=== PATIENT | female | born 1960 | race American Indian/Alaskan Native ===

== ENCOUNTER 2016-04-15 06:30 | Day surgery (SDC) | payer BC ==
[2016-04-15] MEDS ORDERED: NACL 0.9% 500 ML 500 ML ONE (06:45)
[2016-04-15] MEDS ORDERED: NACL 0.9% 500 ML 500 ML IV SCH (07:00)
[2016-04-15 07:12] LABS: Basophils % (Auto) 0.1 % (0.0-1.8); Hematocrit 36.9 % (30.3-42.9); Hemoglobin 11.6 gm/dl (10.1-14.3); Mean Corpuscular HGB Conc 31 % (30-34); Mean Corpuscular Volume 83 fl (79-97); Platelet Count 262 K/mm3 (140-440); Red Blood Count 4.48 M/mm3 (3.65-5.03); Red Cell Distribution Width 15.3 % (13.2-15.2); White Blood Count 13.8 K/mm3 (4.5-11.0)
[2016-04-15 07:14] LABS: Mean Corpuscular Hemoglobin 26 pg (28-32)
--- NOTE | 2016-04-15 07:19 | Anesthesia Consultation ---
Anesthesia Consult and Med Hx - Airway Anesthetic Teeth Evaluation: Good, Dentures (upper) ROM Head & Neck: Adequate Mental/Hyoid Distance: Adequate Mallampati Class: Class II - Pulmonary Exam CTA: Yes - Cardiac Exam Cardiac Exam: RRR - Pre-Operative Health Status ASA Pre-Surgery Classification: ASA2, ASA3 Proposed Anesthetic Plan: Epidural (hx PONV), Spinal - Cardiovascular System Hx Hypertension: Yes - Endocrine Hx Non-Insulin Dependent Diabetes: Yes - Other Systems Hx Obesity: Yes
--- NOTE | 2016-04-15 07:20 | Anesthesia Day of Surgery ---
Anesthesia Day of Surgery - Day of Surgery Patient Examined: Yes Patient H&P Reviewed: Yes Patient is NPO: Yes
[2016-04-15 07:21] LABS: Anion Gap 19 mmol/L; Blood Urea Nitrogen 16 mg/dL (7-17); Calcium 9.4 mg/dL (8.4-10.2); Carbon Dioxide 26 mmol/L (22-30); Chloride 98.8 mmol/L (98-107); Glucose 217 mg/dL (65-100); INR 1.06 (0.87-1.13); Potassium 4.1 mmol/L (3.6-5.0); Sodium 140 mmol/L (137-145)
[2016-04-15] MEDS ORDERED: ZOFRAN IV PRN (07:22)
[2016-04-15] MEDS ORDERED: LACTATED RINGERS 1,000 ML IV SCH (07:26)
[2016-04-15] MEDS: VERSED ONE ×2 (08:33→08:40)
[2016-04-15] MEDS: SUBLIMAZE ONE ×2 (08:33→08:40)
[2016-04-15] MEDS: XYLOCAINE 2% INFILTRATI ONE ×2 (08:34→08:40)
[2016-04-15] MEDS: CALAN ONE ×2 (08:34→08:40)
[2016-04-15] MEDS: HEPARIN 10,000 UNITS/10 ML ONE ×2 (08:35→08:40)
[2016-04-15] MEDS: NITROGLYCERIN SYRINGE 3 ML ONE ×2 (08:36→08:40)
[2016-04-15] MEDS: HEPARIN/NS 5000 UNIT/500ML(CATH LAB) 1,000 ML IR ONE ×2 (08:36→08:40)
--- NOTE | 2016-04-15 09:58 | Cardiac Catherization Report ---
PERIPHERAL ANGIOGRAM REFERRING PHYSICIAN: Ernie Ibarra M.D. INDICATION FOR PROCEDURE: The patient is a very pleasant 55-year-old -[place] female with history of coronary disease and significant bilateral lower extremity peripheral vascular disease and claudication, referred for peripheral angiography. Risks, benefits, and potential alternatives explained at length prior to obtaining informed consent. She is also allergic to SHELLFISH and she was appropriately premedicated. PROCEDURE IN DETAIL: The patient was brought to blood and plasma laboratory assistant in a postabsorptive state. Her left radial artery was prepped and draped in sterile fashion. A 2 mL of 2% lidocaine used to anesthetize the wrist. A standard 5 Nicaraguan hydrophilic sheath used to cannulate the left radial artery via modified Seldinger technique. All exchanges were performed to exchange a J-tip wire. A pigtail catheter was placed into the proximal abdominal aorta. DSA abdominal aortogram is performed. Next, a catheter was moved into the distal abdominal aorta and bilateral runoff. Computer sequencing is performed all the way to the feet. Next, the patient was found to have a right iliac artery occlusion. Third-order angiography was performed. A long 5-Nicaraguan MP catheter placed into the proximal right external iliac artery and a cineangiography is performed in ARMENDARIZ and AMERICAN projections. Catheter removed from the body over a wire, sheath is removed. Manual pressure used to achieve hemostasis. DATA: Aortic pressure is 150/70. The patient remained in normal sinus rhythm throughout the procedure. ANATOMY: The abdominal aorta has mild diffuse atheroma, but no evidence of aneurysm or occlusion. Renal arteries appear to be patent bilaterally. Proximal bilateral common iliac arteries are patent. The right external iliac artery is occluded and reconstitutes at the level of the common femoral artery. The left external iliac artery is patent. The left common femoral artery is patent. The left SFA with moderate diffuse disease, 60-70% throughout. There is good 3-vessel runoff in the left foot. The right external iliac artery is occluded, reconstitution at the right common femoral artery. The right SFA with moderate diffuse disease, maximal narrowing of approximately 50-60%. Popliteal artery is normal. Good 3-vessel infrapopliteal runoff to the foot is identified. CONCLUSIONS: 1. Mild to moderate diffuse aortic atheroma. 2. 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 3. Bilateral moderate diffuse SFA disease. 4. Excellent 3-vessel infrapopliteal runoff bilaterally. We will stage her for right external iliac angioplasty. Results of procedure explained at length to the patient. All questions were addressed. No complications were noted. JOB# [id number] MARIANELA/ANDREA
--- NOTE | 2016-04-15 11:55 | Short Stay Summary ---
Short Stay Documentation Date of service: 04/15/16 - History H&P: obtained from office - Allergies and Medications Current Medications: Allergies codeine Allergy (Verified 04/15/16 06:53) Hives shellfish derived Allergy (Verified 04/15/16 06:53) Hives Home Medications Medication Instructions Recorded Confirmed Last Taken Type Amlodipine Besylate [Amlodipine 5 mg PO QHS 04/15/16 04/15/16 04/14/16 History Besylate] Aspirin [Adult Low Dose Aspirin EC] 81 mg PO DAILY 04/15/16 04/15/16 04/15/16 05 :00 History Cilostazol [Pletal] 50 mg PO BID 04/15/16 04/15/16 04/13/16 History Clopidogrel Bisulfate [Clopidogrel] 76 mg PO DAILY 04/15/16 04/15/16 04/14/16 History Diphenhydramine HCl [Benadryl 25 mg PO Q12H 04/15/16 04/15/16 04/15/16 05:00 History Allergy TAB] Hydrochlorothiazide 12.5 mg PO DAILY 04/15/16 04/15/16 04/15/16 05:00 History [Hydrochlorothiazide] Levothyroxine [Synthroid] 75 mcg PO QAM 04/15/16 04/15/16 04/15/16 05:00 History Losartan [Cozaar] 50 mg PO QHS 04/15/16 04/15/16 04/14/16 History Metformin HCl [Metformin HCl] 500 mg PO DAILY 04/15/16 04/15/16 04/14/16 History Metoprolol [Lopressor TAB] 50 mg PO DAILY 04/15/16 04/15/16 04/14/16 History Nitroglycerin [Nitrostat] 0.4 mg SL Q5M PRN 04/15/16 04/15/16 04/14/16 History Ranitidine HCl [Zantac 150 MG TAB] 150 mg PO Q12H 04/15/16 04/15/16 04/15/16 History Simvastatin [Zocor TAB] 40 mg PO DAILY 04/15/16 04/15/16 04/14/16 History predniSONE [Deltasone] 50 mg PO Q12H 04/15/16 04/15/16 04/15/16 05:00 History traMADol [Ultram 50 MG tab] 50 mg PO Q6HR PRN #60 tablet 04/15/16 Unknown Rx Active Medications Sodium Chloride (Nacl 0.9% 500 Ml) 500 mls @ 50 mls/hr IV DIRECT GIANNI Stop: 04/15/16 16:59 Last Admin: 04/15/16 07:20 Dose: 50 mls/hr Lactated Ringer's (Lactated Ringers) 1,000 mls @ 100 mls/hr IV DIRECT GIANNI Stop: 04/16/16 23:59 Short Stay Discharge Plan Additional Instructions: Follow up with [facility] as scheduled. Follow up with: MARISSA PARKER MD [Staff Physician] - 7 Days EVAN DERAS DO [Primary Care Provider] - 7 Days Forms: CardCat PCI D/C Instructions Prescriptions: traMADol [Ultram 50 MG tab] 50 mg PO Q6HR PRN #60 tablet PRN Reason: Pain
[2016-04-15 12:24] VITALS: BP 145/41
== END 2016-04-15 12:50 | disposition home or self-care (01) ==
LOC: OPU 06:30
PROVIDERS: ATTEND Internal Medicine
DX: I70.213 Atherosclerosis of native arteries of extremities with intermittent claudication, bilateral legs (principal); I70.0 Atherosclerosis of aorta; I70.92 Chronic total occlusion of artery of the extremities; I25.10 Atherosclerotic heart disease of native coronary artery without angina pectoris; E78.5 Hyperlipidemia, unspecified; E11.9 Type 2 diabetes mellitus without complications; E03.9 Hypothyroidism, unspecified; I10 Essential (primary) hypertension; E66.9 Obesity, unspecified; Z68.37 Body mass index [BMI] 37.0-37.9, adult; Z95.5 Presence of coronary angioplasty implant and graft; Z90.710 Acquired absence of both cervix and uterus; Z87.891 Personal history of nicotine dependence; Z83.3 Family history of diabetes mellitus; Z82.49 Family history of ischemic heart disease and other diseases of the circulatory system; Z80.0 Family history of malignant neoplasm of digestive organs
CPT/HCPCS: 36246; 36415; 75625; 75716; 80048; 82962; 85025; 85610; 85730; C1894; J1644; J2250; J3010; J7040; Q9967; 36200

== ENCOUNTER 2016-05-20 06:23 | Day surgery (SDC) | payer BC ==
[~2016-05-20 06:23] MED LIST: ANCEF/STERILE WATER 2 GM/20 ML 2 GM/20 ML SYRINGE IV NR; NACL 0.9% 1000 ML 1,000 ML IV SCH
[2016-05-20] MEDS ORDERED: NACL 0.9% 500 ML 500 ML IV SCH (07:00)
[2016-05-20 07:10] LABS: Hematocrit 36.5 % (30.3-42.9); Hemoglobin 11.6 gm/dl (10.1-14.3); Mean Corpuscular HGB Conc 32 % (30-34); Mean Corpuscular Hemoglobin 26 pg (28-32); Mean Corpuscular Volume 82 fl (79-97); Platelet Count 227 K/mm3 (140-440); Red Blood Count 4.44 M/mm3 (3.65-5.03); Red Cell Distribution Width 14.8 % (13.2-15.2); White Blood Count 5.7 K/mm3 (4.5-11.0)
[2016-05-20 07:19] LABS: INR 1.02 (0.87-1.13)
[2016-05-20 07:20] LABS: Partial Thromboplastin Time 26.6 Sec. (24.2-36.6)
[2016-05-20 07:28] LABS: Anion Gap 17 mmol/L; BUN/Creatinine Ratio 17.14; Blood Urea Nitrogen 12 mg/dL (7-17); Carbon Dioxide 27 mmol/L (22-30); Chloride 105.6 mmol/L (98-107); Glucose 169 mg/dL (65-100); Potassium 3.6 mmol/L (3.6-5.0); Sodium 146 mmol/L (137-145)
[2016-05-20] MEDS ORDERED: BENADRYL IV ONE (08:41)
[2016-05-20] MEDS ORDERED: ECOTRIN PO ONE (08:41)
[2016-05-20] MEDS ORDERED: PLAVIX PO ONE (08:43)
[2016-05-20] MEDS ORDERED: HEPARIN/NS 5000 UNIT/500ML(CATH LAB) 1,000 ML IR ONE (09:18)
[2016-05-20] MEDS ORDERED: ANCEF/STERILE WATER 2 GM/20 ML 2 GM/20 ML SYRINGE IV ONE (09:19)
[2016-05-20] MEDS ORDERED: XYLOCAINE 2% INFILTRATI ONE (09:19)
[2016-05-20] MEDS: VERSED ONE ×3 (09:35→10:45)
[2016-05-20] MEDS: SUBLIMAZE ONE ×5 (09:35→11:10)
[2016-05-20] MEDS: HEPARIN 10,000 UNITS/10 ML ONE ×2 (09:50→10:15)
[2016-05-20] MEDS ORDERED: VERSED ONE (10:43)
[2016-05-20] MEDS ORDERED: APRESOLINE ONE (11:10)
--- NOTE | 2016-05-20 11:41 | Operative Report ---
Operative Report Operative Report: EXAM: 1. Ultrasound-guided access of the left common femoral artery 2. Angiography of the left lower extremity 3. Selection of the abdominal aorta with angiography 4. Selection of the right internal iliac artery with angiography 5. Selection of the right common femoral artery with angiography 6. Angioplasty of the right external iliac artery with a 3 mm angioplasty balloon 7. Stenting of the right common femoral artery with a 8 mm x 7.5 cm Viabahn stent graft 8. Stenting of the right external iliac artery with an 8 mm x 5 cm Viabahn stent graft 9. Angioplasty of the right common iliac artery with a 7 mm x 40 mm IMPACT drug coated balloon 10. Selection of the right tibioperoneal trunk with right lower extremity angiography 11. Removal of the left-sided sheath with manual pressure held until hemostasis achieved DATE: 05/20/16 PLANNING INTERN: BHAVANA SILVESTRE MD INDICATION: Severe right lower extremity claudication which worsened after recent right femoral cardiac catheterization. Patient can walk approximately 1 block due to severe claudication. MEDICATIONS: Please see nursing report for full details. DEVICES: 8 mm x 7.5 cm Viabahn stent graft 8 mm x 5 cm Viabahn stent graft 3 mm x 120 mm angioplasty balloon 7 mm x 120 mm angioplasty balloon 8 mm x 40 mm angioplasty balloon 7 mm x 40 mm IMPACT drug coated balloon (pass through code required) CONTRAST: Please see laboratory equipment cleaner report for full details PROCEDURE: The risks, benefits, and alternatives were discussed with the patient; written informed consent was obtained. Both groins were prepped and draped in a sterile fashion. Under ultrasound evaluation, the left common femoral artery was evaluated. There is only a short area to puncture safely due to the high bifurcation. The left common femoral artery was accessed under direct ultrasound guidance. 0.018 inch wire was passed through the needle. Wire was exchanged for transitional dilator. 0.035 inch wire was passed centrally. Transitional dilator was exchanged for a 5 Hungarian sheath. Digital subtraction angiography was performed demonstrating a puncture at the bifurcation, immediately adjacent to the left profunda femoral artery takeoff and the left superficial femoral artery takeoff. The superficial femoral artery was severely narrowed. The left common femoral artery was minimally atherosclerotic. The profunda femoral artery was minimally atherosclerotic. The left external iliac artery was patent. Due to this disease at the bifurcation, I decided that the patient would require manual compression and not a closure device. Omni flush cath was advanced over the wire and digital subtraction angiography was performed in the abdominal aorta. The abdominal aorta was patent. The bilateral common iliac arteries were patent. The right internal iliac artery was severely narrowed at its ostium but was otherwise patent. The patient was heparinized 3000 units of heparin. 7 Hungarian 45 cm sheath was advanced into the left common iliac artery. I attempted to select the right internal iliac artery with a Glidewire advantage but was unsuccessful. I ended up selecting it with a V18 and subsequently exchanged the V 18 with a 0.035 Trailblazer. Digital subtraction angiography confirmed positioning in the internal iliac artery without evidence of extravasation or pseudoaneurysm or vessel injury. Glidewire advantage was then passed through the Trailblazer. Over the Trailblazer and 0.035 inch wire, the sheath was advanced into the right common iliac artery. Wire and catheter were then removed from the right internal iliac artery and digital subtraction angiography was repeated demonstrating no evidence of vessel trauma. The right external iliac artery was completely occluded. There is reconstitution in the right common femoral artery. The occlusion was then crossed with the Trailblazer and a V 18 wire. With the use of a [employer] Ever device, injections were performed confirming intraluminal crossing in the right common femoral artery. Catheter was retracted and the reentry point in the upper portion of the right common femoral artery was noted. The patient was further heparinized. 3 mm x 120 mm angioplasty balloon was advanced over the wire after the V 18 wire was passed into the superficial femoral artery distally. Angioplasty was performed of the upper portion of the common femoral artery and the external iliac artery at high pressure for 2 minutes. 8 mm x 7.5 cm Viabahn stent graft was then advanced over the wire to the reentry site and successfully deployed in the right common femoral artery. 8 mm x 5 cm Viabahn stent graft was advanced over the wire and deployed in the right external iliac artery. 7 mm x 120 mm angioplasty balloon was advanced over the wire and used to perform angioplasty of the Viabahn stent graft in order to post-dilate the stents. This was performed at high pressure for 2 minutes. Digital subtraction angiography was performed demonstrating prompt runoff into the right common femoral artery from the stented external iliac artery with some moderate multifocal areas of narrowing in the right superficial femoral artery with patency of the profunda femoral artery. The proximal most portion of the right external iliac had a small amount of residual disease and a nonflow limiting dissection which extended into the common iliac artery at its most distal location. There was a small area of incomplete expansion in the distal portion of the external iliac artery stent. This area was treated with angioplastied with a 8 mm x 40 mm angioplasty balloon at high pressure for 2 minutes. 7 mm x 40 mm impact drug coated balloon was advanced over the wire used to perform angioplasty of the right common iliac artery at high pressure for 3 minutes. Digital subtraction angiography was performed demonstrating resolution of the right common iliac artery and proximal external iliac artery narrowing and dissection, and prompt flow through the widely patent Viabahn stent graft into the patent right common femoral artery. Runoff from the sheath into the right lower extremity was performed demonstrating no evidence of embolization with multifocal areas of moderate narrowing in the superficial femoral artery, patency of the right profunda femoral artery, and patency of the right popliteal artery. Angled catheter was advanced over a wire into the tibioperoneal trunk. Digital subtraction angiography from the tibioperoneal trunk demonstrated an atretic right anterior tibial artery which was occluded at its mid to distal portion and patency of the tibioperoneal trunk with the posterior tibial artery being patent throughout its course and the peroneal artery developing into a hypertrophied anterior communicating branch and feeding the dorsalis pedis. After reviewing the images, I determined the intervention was complete. Wire and catheter and sheath was retracted into the left external iliac artery. Wire was passed centrally. The 7 Hungarian sheath was removed and exchanged for a standard 7 Hungarian sheath. ACT was obtained until the ACT demonstrated the ACT was 180. At this point, the sheath was removed and pressure was held until hemostasis was achieved. The left dorsalis pedis was palpable prior to and after sheath removal. The right dorsalis pedis artery was palpable immediately after the procedure. FINDINGS: Please see procedure note above. IMPRESSION: Successful revascularization of the right lower extremity as described above.
--- NOTE | 2016-05-20 11:46 | Short Stay Summary ---
Short Stay Documentation Date of service: 05/20/16 Narrative H&P: see H&P, lifestyle limiting severe right lower extremity claudication - History H&P: obtained from office - Allergies and Medications Current Medications: Allergies codeine Allergy (Verified 04/15/16 06:53) Hives shellfish derived Allergy (Verified 04/15/16 06:53) Hives Home Medications Medication Instructions Recorded Confirmed Last Taken Type Amlodipine Besylate [Amlodipine 5 mg PO QHS 04/15/16 05/20/16 05/18/16 History Besylate] Aspirin [Adult Low Dose Aspirin EC] 81 mg PO DAILY 04/15/16 05/20/16 1 Week Ago History Cilostazol [Pletal] 50 mg PO BID 04/15/16 05/20/16 05/19/16 History Clopidogrel Bisulfate [Clopidogrel] 76 mg PO DAILY 04/15/16 05/20/16 05/19/16 History Hydrochlorothiazide 12.5 mg PO DAILY 04/15/16 05/20/16 05/19/16 History [Hydrochlorothiazide] Levothyroxine [Synthroid] 75 mcg PO QAM 04/15/16 05/20/16 05/20/16 History Losartan [Cozaar] 50 mg PO QHS 04/15/16 05/20/16 05/20/16 History Metformin HCl [Metformin HCl] 500 mg PO DAILY 04/15/16 05/20/16 05/19/16 History Metoprolol [Lopressor TAB] 50 mg PO DAILY 04/15/16 05/20/16 05/20/16 History Nitroglycerin [Nitrostat] 0.4 mg SL Q5M PRN 04/15/16 05/20/16 05/18/16 History Simvastatin [Zocor TAB] 40 mg PO DAILY 04/15/16 05/20/16 05/19/16 History traMADol [Ultram 50 MG tab] 50 mg PO Q6HR PRN #60 tablet 04/15/16 05/20/1605/18 Rx Active Medications Cefazolin Sodium (Ancef/Sterile Water 2 Gm/20 Ml) 2 gm in 20 mls @ 80 mls/hr IV PREOP NR PRN Reason: Protocol Stop: 05/20/16 23:59 Last Admin: 05/20/16 09:30 Dose: 20 mls Sodium Chloride (Nacl 0.9% 500 Ml) 500 mls @ 50 mls/hr IV DIRECT GIANNI Last Admin: 05/20/16 08:37 Dose: 50 mls/hr - Physical exam General appearance: no acute distress Gastrointestinal: normal Extremities: abnormal (right pedal pulses nonpalpable ; left pedal pulses palpable ; post case both sides palpable) - Brief post op/procedure progress note Date of procedure: 05/20/16 Pre-op diagnosis: Severe RLE claudication Post-op diagnosis: same Procedure: Revascularization of the right lower extremity with viabahn stent Anesthesia: local (w/ conscious sedation) Surgeon: BHAVANA SILVESTRE Estimated blood loss: minimal Condition: stable - Hospital course Hospital course: Tolerated procedure well. Held pressure, will be flat for 6 hrs, then can be discharged. - Disposition Condition at discharge: Stable Disposition: DISCHARGED TO HOME OR SELFCARE - Discharge Diagnoses (1) PVD (peripheral vascular disease) with claudication Status: Chronic Short Stay Discharge Plan Activity: advance as tolerated (do not use the left leg for 5 days after procedure, no heavy lifting, no driving with left leg, no excercise with left leg) Diet: regular Wound: keep clean and dry Follow up with: EVAN DERAS DO [Primary Care Provider] - 7 Days
[2016-05-20 15:57] VITALS: BP 133/61
--- NOTE | 2016-05-21 07:48 | Vascular Lab Report ---
MISCELLANEOUS VESSEL IDENTIFICATION: COMMENTS ON THE SCAN: The left common femoral artery was identified and under real-time ultrasound guidance was cannulated. IMPRESSION: Successful ultrasound guided arterial cannulation.
== END 2016-05-20 17:40 | disposition home or self-care (01) ==
LOC: OPU 06:23
PROVIDERS: ATTEND Radiology Diagnostic Radiology
DX: I70.211 Atherosclerosis of native arteries of extremities with intermittent claudication, right leg (principal); Z90.710 Acquired absence of both cervix and uterus; I10 Essential (primary) hypertension; E78.5 Hyperlipidemia, unspecified; Z95.9 Presence of cardiac and vascular implant and graft, unspecified; F17.210 Nicotine dependence, cigarettes, uncomplicated; Z72.89 Other problems related to lifestyle
CPT/HCPCS: 36415; 37221; 37222; 37226; 75625; 75710; 76937; 80048; 85027; 85347; 85610; 85730; 96374; 96375; C1725; C1769; C1887; J0360; J0690; J1200; J1644; J2250; J2930; J3010; J7040; Q9967